=== PATIENT | female | born 1955 | race Caucasian/White ===

== ENCOUNTER 2024-01-16 07:47 | Day surgery (SDC) | payer SELFPAY ==
[2024-01-10 13:14] VITALS: BMI 27.3
[2024-01-16] MEDS ORDERED: ceFAZolin SODIUM 1 GM VIAL ONE (08:18)
[2024-01-16] MEDS ORDERED: PROPOFOL 40 ML ONE ×4 (08:19→10:53)
[2024-01-16] MEDS ORDERED: MIDAZOLAM HCL 2 MG/2 ML SINGLE DOSE VIAL ONE (08:19)
[2024-01-16] MEDS ORDERED: POVIDONE-IODINE 5% OPHTHALMIC PREP 30 ML SOLUTION ONE (09:45)
[2024-01-16] MEDS ORDERED: oxyCODONE HCL 5 MG TABLET PO PRN (11:36)
[2024-01-16] MEDS ORDERED: FENTANYL CITRATE/PF 50 MCG/ML VIAL ONE ×2 (11:40→12:00)
[2024-01-16] MEDS: ACETAMINOPHEN 1000 MG/100 ML BAG IVPB ONE (11:45)
[2024-01-16] MEDS ORDERED: LACTATED RINGERS SOLUTION 1,000 ML IV SCH (11:45)
[2024-01-16] MEDS ORDERED: ONDANSETRON 4 MG/2 ML VIAL ONE (12:29)
[2024-01-16] MEDS: ONDANSETRON 4 MG/2 ML VIAL IVPUSH ONE (12:30)
[2024-01-16] MEDS ORDERED: PROMETHAZINE HCL 25 MG/1 ML VIAL ONE (12:55)
[2024-01-16] MEDS: PROMETHAZINE HCL 25 MG/1 ML VIAL IVPB ONE (13:00)
[2024-01-16 13:33] VITALS: TEMP 97
[2024-01-16 14:08] VITALS: BP 150/80; PULSE 88; RESP 19
== END 2024-01-16 14:11 | disposition home or self-care (01) ==
LOC: FASU 07:47
PROVIDERS: ATTEND Ophthalmology
CPT/HCPCS: 82962; 94760; J0131

== ENCOUNTER 2024-06-11 06:07 | Day surgery (SDC) | payer SELFPAY ==
[2024-06-06 11:40] VITALS: BMI 25.4
[2024-06-11] MEDS ORDERED: ERYTHROMYCIN 0.5% OPHTHALMIC OINTMENT 3.5 GM TUBE ONE (07:12)
[2024-06-11] MEDS ORDERED: LIDOCAINE 1%/EPI 1:100000 (20 ML MULTI DOSE VIAL) ONE (07:12)
[2024-06-11] MEDS ORDERED: BUPIVACAINE HCL/PF 0.5% (5MG/ML) 10 ML VIAL ONE (07:12)
[2024-06-11] MEDS ORDERED: TETRACAINE 0.5% OPHTH SOLN 2 ML BOTTLE ONE (07:12)
[2024-06-11] MEDS ORDERED: POVIDONE-IODINE 5% OPHTHALMIC PREP 30 ML SOLUTION ONE (07:12)
[2024-06-11] MEDS ORDERED: ceFAZolin SODIUM 1 GM VIAL ONE (07:12)
[2024-06-11] MEDS ORDERED: MIDAZOLAM HCL 2 MG/2 ML SINGLE DOSE VIAL ONE (07:35)
[2024-06-11] MEDS ORDERED: PROPOFOL 20 ML ONE ×3 (07:35→09:00)
[2024-06-11] MEDS ORDERED: GENTAMICIN SO4 80 MG/2 ML VIAL ONE (07:59)
[2024-06-11] MEDS ORDERED: ONDANSETRON 4 MG/2 ML VIAL ONE (08:11)
[2024-06-11] MEDS ORDERED: LIDOCAINE HCL/PF 2% SDV 5ML VIAL ONE (08:11)
[2024-06-11] MEDS ORDERED: CLINDAMYCIN 600MG PREMIX IVPB 600 MG/50 ML BAG IVPB ONE (08:11)
[2024-06-11] MEDS ORDERED: DEXAMETHASONE SOD PHOSPHATE 4 MG/1 ML VIAL ONE (08:11)
[2024-06-11] MEDS ORDERED: ONDANSETRON 4 MG/2 ML VIAL IVPUSH PRN (09:41)
[2024-06-11] MEDS ORDERED: oxyCODONE HCL 5 MG TABLET PO PRN (09:41)
[2024-06-11] MEDS ORDERED: LACTATED RINGERS SOLUTION 1,000 ML IV SCH (09:45)
[2024-06-11] MEDS ORDERED: FENTANYL CITRATE/PF 50 MCG/ML VIAL ONE ×2 (09:50→10:11)
[2024-06-11] MEDS: ACETAMINOPHEN 1000 MG/100 ML BAG IVPB ONE (09:52)
[2024-06-11] MEDS: ONDANSETRON 4 MG/2 ML VIAL ONE (11:16)
[2024-06-11 13:06] VITALS: RESP 16; TEMP 96.1
[2024-06-11 13:18] VITALS: BP 124/83; PULSE 96
== END 2024-06-11 12:45 | disposition home or self-care (01) ==
LOC: FASU 06:07
PROVIDERS: ATTEND Ophthalmology
PROC: 080N0ZZ Alteration of Right Upper Eyelid, Open Approach (ICD-10-PCS; 2024-06-11)
PROC: 080P0ZZ Alteration of Left Upper Eyelid, Open Approach (ICD-10-PCS; principal; 2024-06-11 08:10)
DX: H02.831 Dermatochalasis of right upper eyelid (principal); H02.834 Dermatochalasis of left upper eyelid
CPT/HCPCS: 82962; 94760; J0131